=== PATIENT | female | born 1995 | race African-American/Black ===

== ENCOUNTER 2017-06-19 22:14 | Emergency (ER) | payer OTHER ==
[~2017-06-19] VITALS: Ht 154.9 cm; Wt 57.2 kg
[~2017-06-19 22:14] MED LIST: ACET-704 PO; AMOX500C PO; AMOX500T PO; CIPR500T94 PO; CLIN150C14 PO; HYDR-971 PO; NITR100C62 PO; ONDA4TAB10 PO; ONDA4TAB10 SL; PROAIR HFA8.5 GM IH
[2017-06-19 22:29] VITALS: BP 116/69
[2017-06-19] MEDS ORDERED: PENI500T PO (22:41)
[2017-06-19] MEDS ORDERED: HYDR-971 PO (22:41)
--- NOTE | 2017-06-19 22:41 | PHYS DOC ---
Past Medical History Past Medical History: Asthma, Kidney Stone Additional Past Medical Histor: kidney stones Past Surgical History: No Surgical History Alcohol Use: None Drug Use: None Adult General Chief Complaint Chief Complaint: DENTAL PROBLEM HPI HPI Patient is a 22 year old female who presents with dental pain. She reports left upper dental injury about 5 months ago, hasn't been seen by a dentist, now for 3 days with severe pain. She denies fevers/chills, nausea/vomiting, abscess. She has been taking penicillin intermittently which was left over from a dental infection her mother had in hte past, also taking tylenol. Doesn' t have a dentist. Review of Systems Review of Systems Constitutional: Denies fever or chills HENT: Denies nasal congestion or sore throat. Reports dental pain. Respiratory: Denies cough or shortness of breath Cardiovascular: Denies chest pain GI: Denies abdominal pain, nausea, vomiting Musculoskeletal: Denies back pain or joint pain Integument: Denies rash Neurologic: Denies headache Allergies Allergies Allergies Coded Allergies Type Severity Reaction Last Updated Verified tramadol Adverse Reaction Intermediate vomiting 08/04/15 Yes Uncoded Allergies Type Severity Reaction Last Updated Verified " SOUR SKITTLES" Allergy Intermediate rash 07/05/14 Physical Exam Physical Exam Constitutional: Well developed, well nourished, no acute distress, non-toxic appearance. HENT: Normocephalic, atraumatic, bilateral external ears normal, oropharynx moist, nose normal. left maxillary premolar with about 1/4 tooth absent, generalized tenderness to tooth & gingiva with minimal gingival erythema, no abscess, no trismus, no jaw swelling. Eyes: PERRLA, EOMI, conjunctiva normal, no discharge. Neck: supple, no stridor. Cardiovascular: RRR, no murmurs, no edema. Lungs & Thorax: LCTAB, no wheezing, no respiratory distress. Abdomen: soft, nontender, nondistended. Skin: Warm, dry, no erythema, no rash. Back: No tenderness. Extremities: No tenderness, no edema. Neurologic: Alert and oriented X 3, no focal deficits noted. Psychologic: Affect normal, judgement normal, mood normal. Current Patient Data Vital Signs Vital Signs Date Time Temp Pulse Resp B/P (MAP) Pulse Ox O2 Delivery O2 Flow Rate FiO2 06/19/17 22:29 98.0 63 16 99 Room Air 98.0 EKG EKG [] Radiology/Procedures Radiology/Procedures [] Course & Med Decision Making Course & Med Decision Making Pertinent Labs and Imaging studies reviewed. (See chart for details) The patient presents with dental pain. She is driving tonight. Gave prescriptions for penicillin (recommend using this rather than her mother's pills), norco. Rest, hydration, ibuprofen q8 hours for pain, norco for severe breakthrough pain, no drinking alcohol or driving while taking norco. Follow up with a dentist as soon as possible. Come back for difficulty breathing or swallowing, or otherwise worsening condition. Discharged home in stable condition. [] Dragon Disclaimer Dragon Disclaimer This electronic medical record was generated, in whole or in part, using a voice recognition dictation system. Departure Departure Impression: Primary Impression: Pain, dental Disposition: HOME, SELF-CARE Condition: STABLE Referrals: NO PCP (PCP) LAURE JAMES DMD Patient Instructions: Dental Pain, [id number] Additional Instructions: You were seen in the emergency department today for dental pain. Please take penicillin as prescribed, take ibuprofen 600 mg (3 tablets) every 8 hours for pain and inflammation, use [place] for severe breakthrough pain. No drinking alcohol or driving while taking [place]. Apply ice packs to your face. Make an appointment with a dentist as soon as possible. You can see Dr. James or the dentist of your choice. Come back for difficulty breathing or swallowing, or otherwise worsening condition. Scripts Hydrocodone/Apap 5-325 (NORCO 5-325 TABLET) 1 Each Tablet 1 TAB PO PRN Q6HRS Y for PAIN, #10 TAB 0 Refills Prov: LUKE PARRY MD 06/19/17 Penicillin V Potassium (PENICILLIN V POTASSIUM) 500 Mg Tablet 500 MG PO QID for 7 Days, TAB 0 Refills Prov: LUKE PARRY MD 06/19/17 LUKE PARRY MD Jun 19, 2017 22:41
== END 2017-06-19 23:09 | disposition home or self-care (01) ==
LOC: ER 22:14
DX: K08.89 Other specified disorders of teeth and supporting structures (principal); J45.909 Unspecified asthma, uncomplicated; Z87.442 Personal history of urinary calculi; Z88.6 Allergy status to analgesic agent
CPT/HCPCS: 99283

== ENCOUNTER 2017-07-19 21:11 | Emergency (ER) | payer SELFPAY ==
[~2017-07-19] VITALS: Ht 152.4 cm; Wt 57.2 kg
[~2017-07-19 21:11] MED LIST changes: +PENI500T PO
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
[2017-07-19] MEDS ORDERED: predniSONE 20 MG TABLET PO ONE (21:45)
[2017-07-19] MEDS ORDERED: IPRATRPIUM/ALBUTEROL 0.5/2.5MG 3 ML NEBU. NEB ONE (21:45)
[2017-07-19] MEDS ORDERED: cefTRIAXone IM 1 GM VIAL IM ONE (22:30)
[2017-07-19] MEDS ORDERED: AZITHROMYCIN 250 MG TABLET. PO ONE (22:30)
[2017-07-19] MEDS ORDERED: AZIT250T6 PO (23:03)
[2017-07-19] MEDS ORDERED: PROVENTIL HFA6.7 GM IH (23:03)
[2017-07-19] MEDS ORDERED: PRED-220 PO (23:04)
[2017-07-19 23:36] VITALS: BP 106/50
--- NOTE | 2017-07-20 07:28 | RAD ---
Exam performed: 2 views of the chest. Indication: asthma, cough, shortness of breath Date of Service:07/19/2017 11:28 PM . Comparison : Two-view chest from 11/01/14 Findings: PA and lateral radiographs of the chest reveal a normal cardiomediastinal contour. Probable left perihilar infiltrates. No pleural effusion or pneumothorax is seen. The visualized osseous structures are unremarkable. Impression: Probable left perihilar infiltrates
== END 2017-07-19 23:36 | disposition home or self-care (01) ==
LOC: ER 21:11
DX: J45.901 Unspecified asthma with (acute) exacerbation (principal); Z88.5 Allergy status to narcotic agent; Z91.02 Food additives allergy status; Z87.891 Personal history of nicotine dependence; Z79.899 Other long term (current) drug therapy
CPT/HCPCS: 71020; 94250; 94640; 96372; 99284; J0696; J7512; J7620; Q0144

== ENCOUNTER 2017-08-29 22:51 | Emergency (ER) | payer SELFPAY ==
[~2017-08-29] VITALS: Ht 152.4 cm; Wt 57.2 kg
[~2017-08-29 22:51] MED LIST changes: +AZIT250T6 PO; +PRED-220 PO; +PROVENTIL HFA6.7 GM IH
[2017-08-29 22:57] VITALS: BP 123/73
[2017-08-29] MEDS ORDERED: NAPR500T PO (23:10)
[2017-08-29] MEDS ORDERED: PENI500T PO (23:10)
--- NOTE | 2017-08-29 23:10 | PHYS DOC ---
Past Medical History Past Medical History: Asthma, Kidney Stone Additional Past Medical Histor: kidney stones Past Surgical History: No Surgical History Alcohol Use: None Drug Use: None Adult General Chief Complaint Chief Complaint: DENTAL PROBLEM HPI HPI Patient is a 22 year old female presents to the emergency department with complaints of dental pain. Patient states she has had chronic dental pain. She reports no fever. She has no difficulty with swallowing or phonation. Review of Systems Review of Systems Constitutional: Denies fever or chills [] Eyes: Denies change in visual acuity, redness, or eye pain [] HENT: Denies nasal congestion or sore throat; complaints of dental pain [] Respiratory: Denies cough or shortness of breath [] Cardiovascular: No additional information not addressed in HPI [] GI: Denies abdominal pain, nausea, vomiting, bloody stools or diarrhea [] : Denies dysuria or hematuria [] Musculoskeletal: Denies back pain or joint pain [] Integument: Denies rash or skin lesions [] Neurologic: Denies headache, focal weakness or sensory changes [] Endocrine: Denies polyuria or polydipsia [] Allergies Allergies Allergies Coded Allergies Type Severity Reaction Last Updated Verified tramadol Adverse Reaction Intermediate vomiting 08/04/15 Yes Uncoded Allergies Type Severity Reaction Last Updated Verified " SOUR SKITTLES" Allergy Intermediate rash 07/05/14 Physical Exam Physical Exam Constitutional: Well developed, well nourished, no acute distress, non-toxic appearance. [] HENT: Normocephalic, atraumatic, bilateral external ears normal, oropharynx moist, teeth #4 and 14 with caries. No surrounding gingival erythema. No oral exudates, nose normal. [] Eyes: PERRLA, EOMI, conjunctiva normal, no discharge. [] Neck: Normal range of motion, no tenderness, supple without lymphadenopathy, no stridor. [] Cardiovascular:Heart rate regular rhythm, no murmur [] Lungs & Thorax: Bilateral breath sounds clear to auscultation [] Abdomen: Bowel sounds normal, soft, no tenderness, no masses, no pulsatile masses. [] Skin: Warm, dry, no erythema, no rash. [] Extremities: No tenderness, no cyanosis, no clubbing, ROM intact, no edema. [] Neurologic: Alert and oriented X 3, normal motor function, normal sensory function, no focal deficits noted. [] Current Patient Data Vital Signs Vital Signs Date Time Temp Pulse Resp B/P (MAP) Pulse Ox O2 Delivery O2 Flow Rate FiO2 08/29/17 22:57 98.0 67 20 100 Room Air 98.0 EKG EKG [] Radiology/Procedures Radiology/Procedures [] Course & Med Decision Making Course & Med Decision Making Pertinent Labs and Imaging studies reviewed. (See chart for details) [] Dragon Disclaimer Dragon Disclaimer This electronic medical record was generated, in whole or in part, using a voice recognition dictation system. Departure Departure Impression: Primary Impression: Pain, dental Disposition: HOME, SELF-CARE Condition: STABLE Referrals: NO PCP (PCP) Patient Instructions: Dental Caries Additional Instructions: You been provided with a list for dental resources. Please select an office and call to schedule an appointment. Scripts Penicillin V Potassium (PENICILLIN V POTASSIUM) 500 Mg Tablet 1 TAB PO QID, #40 TAB Prov: FAVIAN PARK APRN 08/29/17 Naproxen (NAPROSYN) 500 Mg Tablet 500 MG PO BID Y for PAIN, #20 TAB Prov: FAVIAN PARK APRN 08/29/17 FAVIAN PARK APRN Aug 29, 2017 23:10
[2017-08-29] MEDS ORDERED: NAPROXEN 500 MG TABLET PO ONE (23:15)
== END 2017-08-29 23:15 | disposition home or self-care (01) ==
LOC: ER 22:51
DX: G89.29 Other chronic pain (principal); K08.89 Other specified disorders of teeth and supporting structures; J45.909 Unspecified asthma, uncomplicated; Z88.6 Allergy status to analgesic agent; Z91.018 Allergy to other foods
CPT/HCPCS: 99283

== ENCOUNTER 2017-09-13 18:31 | Emergency (ER) | payer SELFPAY ==
[~2017-09-13 18:31] MED LIST changes: +NAPR500T PO
== END 2017-09-13 18:33 | disposition left against medical advice (07) ==
LOC: ER 18:31
DX: M54.5 Low back pain (principal); Z88.5 Allergy status to narcotic agent; Z53.21 Procedure and treatment not carried out due to patient leaving prior to being seen by health care provider; V43.52XA Car driver injured in collision with other type car in traffic accident, initial encounter; Y93.I9 Activity, other involving external motion; Y92.410 Unspecified street and highway as the place of occurrence of the external cause; Y99.8 Other external cause status

== ENCOUNTER 2018-01-02 15:18 | Emergency (ER) | payer SELFPAY ==
[2018-01-02 15:56] LABS: URINE HCG POC HCG NEGATIVE (Negative)
[2018-01-02 16:30] LABS: BILIRUBIN,URINE NEGATIVE (NEG); CLARITY,URINE CLEAR; COLOR,URINE YELLOW; GLUCOSE,URINE NEGATIVE (NEG); NITRITE,URINE NEGATIVE (NEG); PROTEIN,URINE NEGATIVE (NEG-TRACE); UROBILINOGEN,URINE 0.2 mg/dL (0.2 mg/dL)
[2018-01-02 16:33] LABS: BARBITURATES NEG (NEG); BENZODIAZEPINES NEG (NEG); CANNABINOIDS POS (NEG); COCAINE NEG (NEG); METHADONE NEG (NEG); OPIATES NEG (NEG); PHENCYCLIDINE NEG (NEG)
[2018-01-02 16:34] LABS: AMPHETAMINE/METHAMPHETAMINE NEG (NEG); ETHANOL, URINE NEG (NEG)
[2018-01-02 16:39] LABS: BACTERIA,URINE FEW /HPF (0-FEW); RBC,URINE OCC /HPF (0-2)
[2018-01-02 16:40] LABS: SQUAMOUS EPITHELIAL CELL,UR MOD /LPF
[2018-01-02 16:46] LABS: BASO % 0 % (0-3); EOS % 0 % (0-3); HEMATOCRIT 43.1 % (36.0-47.0); LYMPH # 1.1 x10^3/uL (1.0-4.8); LYMPH % 6 % (24-48); MEAN CORPUSCULAR HEMOGLOBIN 31 pg (25-35); MEAN CORPUSCULAR HGB CONC 35 g/dL (31-37); MEAN CORPUSCULAR VOLUME 88 fL (79-100); MONO # 0.8 x10^3/uL (0.0-1.1); MONO % 4 % (0-9); NEUT # 17.3 x10^3uL (1.8-7.7); NEUT % 90 % (31-73); PLATELET COUNT 169 x10^3/uL (140-400); RED BLOOD COUNT 4.91 x10^6/uL (3.50-5.40); WHITE BLOOD COUNT 19.2 x10^3/uL (4.0-11.0)
[2018-01-02 16:49] LABS: ADD MAN DIFF? YES
[2018-01-02] MEDS: fentaNYL PF VIAL 100 MCG/2 ML VIAL IV ×2 (17:02)
[2018-01-02] MEDS: ONDANSETRON PF 4 MG/2 ML VIAL. IV ×2 (17:03)
[2018-01-02 17:12] LABS: % BANDS 8 % (0-9); % LYMPHS 7 % (24-48); % MONOS 2 % (0-10); % SEGS 83 % (35-66)
[2018-01-02 17:13] LABS: PLT ESTIMATE ADEQUATE (ADEQUATE); TOXIC GRANULATION SLIGHT
[2018-01-02 17:45] LABS: BLOOD UREA NITROGEN 8 mg/dL (7-20); BUN/CREATININE RATIO 13 (6-20); CALCIUM 8.6 mg/dL (8.5-10.1); CREATININE 0.6 mg/dL (0.6-1.0); GLUCOSE 115 mg/dL (70-99)
[2018-01-02] MEDS ORDERED: CONTRAST GIVEN MC ×2 (17:45)
[2018-01-02 17:46] LABS: ANION GAP 8 (6-14); CARBON DIOXIDE 29 mmol/L (21-32); CHLORIDE 104 mmol/L (98-107); GFR 152.7; SODIUM 141 mmol/L (136-145)
[2018-01-02 17:52] LABS: ALBUMIN 3.8 g/dL (3.4-5.0); ALBUMIN/GLOBULIN RATIO 1.1 (1.0-1.7); ALK PHOS 55 U/L (46-116); ALT (SGPT) 33 U/L (14-59); AST (SGOT) 33 U/L (15-37); TOTAL BILIRUBIN 0.4 mg/dL (0.2-1.0); TOTAL PROTEIN 7.4 g/dL (6.4-8.2)
[2018-01-02] MEDS: IOHEXOL 300 MG/ML 100ML VIAL. IV ×2 (17:55)
[2018-01-03 19:14] LABS: CHLAMYDIA PROBE Negative (Negative); GC PROBE Negative (Negative)
== END 2018-01-02 19:29 | disposition home or self-care (01) ==
LOC: ER 15:18
DX: N93.8 Other specified abnormal uterine and vaginal bleeding (principal); K52.9 Noninfective gastroenteritis and colitis, unspecified; N76.0 Acute vaginitis; B96.89 Other specified bacterial agents as the cause of diseases classified elsewhere; J45.909 Unspecified asthma, uncomplicated; Z87.442 Personal history of urinary calculi; Z88.5 Allergy status to narcotic agent; Z91.018 Allergy to other foods
CPT/HCPCS: 36415; 74177; 76856; 80053; 80307; 81001; 81025; 85007; 85025; 87491; 87591; 96374; 96375; 99285-25; J2405; J3010; Q0111; Q9967

== ENCOUNTER 2019-10-01 09:30 | Emergency (ER) | payer SELFPAY ==
[~2019-10-01] VITALS: Ht 157.5 cm; Wt 61.7 kg
[~2019-10-01 09:30] MED LIST changes: +ALBU2.5V8 IH; +HYDR-3164 PO; -HYDR-971 PO; +METR250T PO; +NAPR-683 PO; -NAPR500T PO; -PROAIR HFA8.5 GM IH; +PROM25TA10 PO
[2019-10-01 09:37] VITALS: BP 119/80
--- NOTE | 2019-10-01 10:04 | PHYS DOC ---
Past Medical History Past Medical History: Asthma, Kidney Stone Additional Past Medical Histor: kidney stones Past Surgical History: No Surgical History Alcohol Use: None Drug Use: None Adult General Chief Complaint Chief Complaint: DENTAL PROBLEM HPI HPI Patient is a 24 year old female that presents to the ER for dental pain has been ongoing for 3 days. The patient has been to the ER multiple times in the past with dental pain. She states that she has a dentist and and is able to go to the dentist but she has not yet called to make an appointment. Denies any other complaints. Review of Systems Review of Systems Constitutional: Denies fever or chills [] Eyes: Denies change in visual acuity, redness, or eye pain [] HENT: Reports dental pain. Respiratory: Denies cough or shortness of breath [] Cardiovascular: No additional information not addressed in HPI [] GI: Denies abdominal pain, nausea, vomiting, bloody stools or diarrhea [] : Denies dysuria or hematuria [] Musculoskeletal: Denies back pain or joint pain [] Integument: Denies rash or skin lesions [] Neurologic: Denies headache, focal weakness or sensory changes [] Endocrine: Denies polyuria or polydipsia [] Complete systems were reviewed and found to be within normal limits, except as documented in this note. Allergies Allergies Allergies Coded Allergies Type Severity Reaction Last Updated Verified tramadol Adverse Reaction Intermediate vomiting 08/04/15 Yes Uncoded Allergies Type Severity Reaction Last Updated Verified " SOUR SKITTLES" Allergy Intermediate rash 07/05/14 Physical Exam Physical Exam Constitutional: Well developed, well nourished, no acute distress, non-toxic appearance. [] HENT: Normocephalic, atraumatic, bilateral external ears normal, oropharynx moist, no oral exudates, nose normal. Tooth # 18 has a cavity, Tooth #31 has cavity. Eyes: PERRLA, EOMI, conjunctiva normal, no discharge. [] Neck: Normal range of motion, no tenderness, supple, no stridor. [] Skin: Warm, dry, no erythema, no rash. [] Back: No tenderness, no CVA tenderness. [] Extremities: No tenderness, no cyanosis, no clubbing, ROM intact, no edema. [] Neurologic: Alert and oriented X 3, normal motor function, normal sensory function, no focal deficits noted. [] Psychologic: Affect normal, judgement normal, mood normal. [] Current Patient Data Vital Signs Vital Signs Date Time Temp Pulse Resp B/P (MAP) Pulse Ox O2 Delivery O2 Flow Rate FiO2 10/01/19 09:37 98.2 77 18 119/80 (93) 100 Room Air 98.2 EKG EKG [] Radiology/Procedures Radiology/Procedures [] Course & Med Decision Making Course & Med Decision Making Pertinent Labs and Imaging studies reviewed. (See chart for details) Patient has dental cavities. Discussed and reports sensation when she eats and drinks. Discussed how she needs to go to a dentist. A medical screening exam was performed on this patient and the patient does not appear to be having a medical emergency. Her symptoms are not of sufficient severity and within reasonable medical probability it is unlikely the absence of immediate medical attention would result in placing the health of the individual (or, with respect to a woman, the health of the woman or her unborn child) in serious jeopardy, serious impairment to bodily functions, or serious dysfunction of any bodily organ or part. If , the patient is not in labor Dragon Disclaimer Dragon Disclaimer This electronic medical record was generated, in whole or in part, using a voice recognition dictation system. Departure Departure Impression: Primary Impression: Pain, dental Additional Impression: Encounter for medical screening examination Disposition: 01 HOME, SELF-CARE Condition: STABLE Referrals: NO PCP (PCP) Patient Instructions: Dental Caries, Dental Pain, Medical Screening Exam Additional Instructions: Thank you for visiting [facility]. We appreciate you trusting us with your care. If any additional problems come up don't hesitate to return to visit us. Please follow up with your primary care provider so they can plan additional care if needed and know about the problem that you had. If symptoms worsen come back to the Emergency Department. Any concerning symptoms that start such as chest pain, shortness of air, weakness or numbness on one side of the body, running high fevers or any other concerning symptoms return to the ER. Problem Qualifiers ELVIS SIMON APRN Oct 01, 2019 10:04
== END 2019-10-01 10:17 | disposition home or self-care (01) ==
LOC: ER 09:30
DX: K08.89 Other specified disorders of teeth and supporting structures (principal); K02.9 Dental caries, unspecified; J45.909 Unspecified asthma, uncomplicated; Z91.018 Allergy to other foods
CPT/HCPCS: 99281

== ENCOUNTER 2020-06-21 00:39 | Emergency (ER) | payer MEDICAID ==
[~2020-06-21] VITALS: Ht 154.9 cm; Wt 61.8 kg
--- NOTE | 2020-06-21 01:18 | PHYS DOC ---
Past Medical History Past Medical History: Asthma, Kidney Stone Additional Past Medical Histor: kidney stones Past Surgical History: No Surgical History Smoking Status: Current Some Day Smoker Alcohol Use: None Drug Use: None General Adult EDM: Chief Complaint: Toothache HPI: HPI: 25-year-old female presents emerged department complaints of toothache x2 days. Patient states she is tried [id number] medications without improvement. Patient states she has a hole in the tooth on the bottom molar. She states no fevers. She is , she states is only mild to take Tylenol. She denies any fever, nausea, vomiting, chest pain, shortness of breath, abdominal pain. She states she does feel movement without concern. Nothing makes her pain worse, nothing makes her pain better. Review of Systems: Review of Systems: Constitutional: Denies fever or chills, toothache [] Respiratory: Denies cough or shortness of breath. [] Cardiovascular: Denies chest pain or edema. [] GI: Denies abdominal pain, nausea, vomiting, bloody stools or diarrhea. [] Musculoskeletal: Denies back pain or joint pain. [] Neurologic: Denies headache, focal weakness or sensory changes. [] Heart Score: Risk Factors: Risk Factors: DM, Current or recent (<one month) smoker, HTN, HLP, family history of CAD, obesity. Risk Scores: Score 0 - 3: 2.5% MACE over next 6 weeks - Discharge Home Score 4 - 6: 20.3% MACE over next 6 weeks - Admit for Clinical Observation Score 7 - 10: 72.7% MACE over next 6 weeks - Early Invasive Strategies Allergies: Allergies: Allergies Coded Allergies Type Severity Reaction Last Updated Verified tramadol Adverse Reaction Intermediate vomiting 08/04/15 Yes Uncoded Allergies Type Severity Reaction Last Updated Verified " SOUR SKITTLES" Allergy Intermediate rash 07/05/14 Physical Exam: PE: Constitutional: Well developed, well nourished, no acute distress, non-toxic appearance. [] HENT: Normocephalic, atraumatic, bilateral external ears normal, oropharynx moist, no oral exudates, nose normal. Left bottom molar with hole in the tooth, no swelling appreciated on exam[] Eyes: PERRLA, EOMI, conjunctiva normal, no discharge. [] Neck: Normal range of motion, no tenderness, supple, no stridor. [] Cardiovascular:Heart rate regular rhythm, no murmur [] Lungs & Thorax: Bilateral breath sounds clear to auscultation [] Skin: Warm, dry, no erythema, no rash. [] Extremities: No tenderness, no edema. [] Neurologic: Alert and oriented X 3, no focal deficits noted. [] Psychologic: Affect normal, judgement normal, mood normal. [] EKG: EKG: [] Radiology/Procedures: Radiology/Procedures: [] Course & Med Decision Making: Course & Med Decision Making Pertinent Labs and Imaging studies reviewed. (See chart for details) []25-year-old female presents emerged department complaints of toothache x2 days. Patient states she is tried [id number] medications without improvement. Patient states she has a hole in the tooth on the bottom molar. She states no fevers. She is , she states is only mild to take Tylenol. She denies any fever, nausea, vomiting, chest pain, shortness of breath, abdominal pain. She states she does feel movement without concern. Nothing makes her pain worse, nothing makes her pain better. Bupivacaine 0.5%, lidocaine 1% mixture used for inferior alveolar block. Amoxicillin 500 mg p.o. twice daily times a total of 7 days provided. We will also plan for viscous lidocaine, use with cotton balls to help with localized anesthesia. Discussed return precautions. Discussed recommendations for follow-up with dentist as an outpatient. Patient expressed understanding of discharge plans. Mona Disclaimer: Mona Disclaimer: This electronic medical record was generated, in whole or in part, using a voice recognition dictation system. Departure Departure Impression: Primary Impression: Pain, dental Disposition: HOME, SELF-CARE Condition: IMPROVED Referrals: NO PCP (PCP) Patient Instructions: Dental Pain, [id number] Scripts Amoxicillin (AMOXICILLIN) 500 Mg Capsule 1 CAP PO Q8HRS for infection for 7 Days, #21 CAP Prov: EDGARDO JULIO MD 06/21/20 Justicifation of Admission Dx: Justifications for Admission: Justification of Admission Dx: N/A EDGARDO JULIO MD Jun 21, 2020 01:18
[2020-06-21 01:19] VITALS: BP 136/72
[2020-06-21] MEDS ORDERED: AMOX500C PO (01:31)
[2020-06-21] MEDS ORDERED: BUPIVACAINE MPF 0.5% 30 ML VIAL. INJ ONE (02:00)
[2020-06-21] MEDS ORDERED: LIDOCAINE 2% VISCOUS 15 ML SOLUTION. SWSW ONE (02:00)
== END 2020-06-21 01:48 | disposition home or self-care (01) ==
LOC: ER 00:39
DX: O26.891 Other specified pregnancy related conditions, first trimester (principal); K08.89 Other specified disorders of teeth and supporting structures; J45.909 Unspecified asthma, uncomplicated; F17.200 Nicotine dependence, unspecified, uncomplicated; Z87.442 Personal history of urinary calculi; Z88.8 Allergy status to other drugs, medicaments and biological substances; Z3A.00 Weeks of gestation of pregnancy not specified
CPT/HCPCS: 64400; 99284; J3490

== ENCOUNTER 2020-07-19 13:55 | Emergency (ER) | payer MEDICAID ==
[~2020-07-19] VITALS: Ht 154.9 cm; Wt 71.0 kg
[2020-07-19 14:00] VITALS: BP 133/71
[2020-07-19] MEDS ORDERED: AMOX500C PO (14:19)
[2020-07-19] MEDS ORDERED: CHLO15MO2 PO (14:19)
--- NOTE | 2020-07-19 14:20 | PHYS DOC ---
Past Medical History Past Medical History: Asthma, Kidney Stone Additional Past Medical Histor: kidney stones Past Surgical History: No Surgical History Smoking Status: Never Smoker Alcohol Use: None Drug Use: None General Adult EDM: Chief Complaint: DENTAL PROBLEM HPI: HPI: Patient is a 25 year old female who presents with left lower dental pain x 2 days. States she can not get the tooth pulled due to being 34 weeks . No facial swelling, no fever. Patient has a left lower molar that is broken along with several other dental caries. Patient only other history is kidney stones. Review of Systems: Review of Systems: Constitutional: Denies fever or chills. [] Eyes: Denies change in visual acuity. [] HENT: Denies nasal congestion or sore throat. Left lower dental pain. [] Respiratory: Denies cough or shortness of breath. [] Cardiovascular: Denies chest pain or edema. [] GI: Denies abdominal pain, nausea, vomiting, bloody stools or diarrhea. [] : Denies dysuria. [] Musculoskeletal: Denies back pain or joint pain. [] Integument: Denies rash. [] Neurologic: Denies headache, focal weakness or sensory changes. [] Endocrine: Denies polyuria or polydipsia. [] Lymphatic: Denies swollen glands. [] Psychiatric: Denies depression or anxiety. [] Heart Score: Risk Factors: Risk Factors: DM, Current or recent (<one month) smoker, HTN, HLP, family history of CAD, obesity. Risk Scores: Score 0 - 3: 2.5% MACE over next 6 weeks - Discharge Home Score 4 - 6: 20.3% MACE over next 6 weeks - Admit for Clinical Observation Score 7 - 10: 72.7% MACE over next 6 weeks - Early Invasive Strategies Allergies: Allergies: Allergies Coded Allergies Type Severity Reaction Last Updated Verified tramadol Adverse Reaction Intermediate vomiting 08/04/15 Yes Uncoded Allergies Type Severity Reaction Last Updated Verified " SOUR SKITTLES" Allergy Intermediate rash 07/05/14 Physical Exam: PE: Constitutional: Well developed, well nourished, no acute distress, non-toxic appearance. [] HENT: Normocephalic, atraumatic, bilateral external ears normal, oropharynx moist, no oral exudates, nose normal. Left lower dental caries and broken teeth. [] Eyes: PERRLA, EOMI, conjunctiva normal, no discharge. [] Neck: Normal range of motion, no tenderness, supple, no stridor. [] Cardiovascular:Heart rate regular rhythm, no murmur [] Lungs & Thorax: Bilateral breath sounds clear to auscultation [] Abdomen: Bowel sounds normal, soft, no tenderness, no masses, no pulsatile masses. [] Skin: Warm, dry, no erythema, no rash. [] Back: No tenderness, no CVA tenderness. [] Extremities: No tenderness, no cyanosis, no clubbing, ROM intact, no edema. [] Neurologic: Alert and oriented X 3, normal motor function, normal sensory function, no focal deficits noted. [] Psychologic: Affect normal, judgement normal, mood normal. [] EKG: EKG: [] Radiology/Procedures: Radiology/Procedures: [] Course & Med Decision Making: Course & Med Decision Making Pertinent Labs and Imaging studies reviewed. (See chart for details) See HPI. 2% Lidocaine is injected into the medial side of the ramus of the mandible at the inferior alveolar nerve. I will also send the patient home on Amoxicillin and Magic Mouth Wash. [] Dragon Disclaimer: Dragon Disclaimer: This electronic medical record was generated, in whole or in part, using a voice recognition dictation system. Departure Departure Impression: Primary Impression: Pain, dental Disposition: HOME, SELF-CARE Condition: STABLE Referrals: NO PCP (PCP) Patient Instructions: Dental Caries Additional Instructions: Follow up with a dentist as soon as possible. Use medications as prescribed. Scripts Hydrocodone/Apap 5-325 (NORCO 5-325 TABLET) 1 Each Tablet 1 TAB PO PRN Q8HRS PRN for PAIN, #10 TAB 0 Refills Prov: JUAN A BURTON APRN 07/19/20 Amoxicillin (AMOXICILLIN) 500 Mg Capsule 1 CAP PO BID, #20 CAP Prov: JUAN A BURTON APRN 07/19/20 Chlorhexidine Gluconate (PERIDEX) 15 Ml Mouthwash 15 ML PO BID for 14 Days, #420 ML 0 Refills Prov: JUAN A BURTON APRN 07/19/20 Justicifation of Admission Dx: Justifications for Admission: Justification of Admission Dx: N/A JUAN A BURTON APRN Jul 19, 2020 14:20
[2020-07-19] MEDS ORDERED: LIDOCAINE 2% 20 ML VIAL. IJ ONE (14:30)
[2020-07-19] MEDS ORDERED: HYDR-3164 PO (14:46)
[2020-07-20] MEDS ORDERED: AMOX1TAB61 PO (07:42)
[2020-07-20] MEDS ORDERED: ONDA4TAB7 PO (07:42)
== END 2020-07-19 14:50 | disposition home or self-care (01) ==
LOC: ER 14:04
DX: O99.613 Diseases of the digestive system complicating pregnancy, third trimester (principal); K08.89 Other specified disorders of teeth and supporting structures; O99.513 Diseases of the respiratory system complicating pregnancy, third trimester; J45.909 Unspecified asthma, uncomplicated; Z3A.32 32 weeks gestation of pregnancy; Z88.6 Allergy status to analgesic agent; Z91.018 Allergy to other foods
CPT/HCPCS: 64400; 96372; 99283; 99284

== ENCOUNTER 2020-07-20 06:41 | Emergency (ER) | payer MEDICAID ==
[~2020-07-20] VITALS: Ht 154.9 cm; Wt 75.0 kg
[~2020-07-20 06:41] MED LIST changes: +CHLO15MO2 PO
--- NOTE | 2020-07-20 07:20 | PHYS DOC ---
Past Medical History Past Medical History: Asthma, Kidney Stone Additional Past Medical Histor: kidney stones Past Surgical History: No Surgical History Smoking Status: Never Smoker Alcohol Use: None Drug Use: None General Adult EDM: Chief Complaint: DENTAL PROBLEM HPI: HPI: 25 yo F, 8 months , presents to the ed with c/o worsening left lower dental pain and cheek swelling, that started after pt was seen in ed yesterday. Patient was seen in the ED yesterday for periapical abscess and was prescribed amoxicillin, norco, magic mouth wash and had an inferior aveolar nerve block with 2% lidocaine. Pt also reports nausea and nbnb vomiting after taking her hydrocodone. Refuses any further dental block. Review of Systems: Review of Systems: Constitutional: Denies fever or chills. [] Eyes: Denies change in visual acuity. [] HENT: Denies nasal congestion or sore throat, or neck stiffness Respiratory: Denies cough or shortness of breath. [] Cardiovascular: Denies chest pain or edema. [] GI: Denies abdominal pain, n/v : Denies dysuria. [] Musculoskeletal: Denies back pain or joint pain. [] Integument: Denies rash. [] Neurologic: Denies headache, focal weakness or sensory changes. [] Endocrine: Denies polyuria or polydipsia. [] Psychiatric: Denies depression or anxiety. [] Allergies: Allergies: Allergies Coded Allergies Type Severity Reaction Last Updated Verified tramadol Adverse Reaction Intermediate vomiting 08/04/15 Yes Uncoded Allergies Type Severity Reaction Last Updated Verified " SOUR SKITTLES" Allergy Intermediate rash 07/05/14 Physical Exam: PE: Constitutional: Well developed, well nourished, in pain HENT: Normocephalic, atraumatic, bilateral external ears normal, oropharynx moist/patent, no oral exudates, nose normal, very poor dentition diffusely with left molar gingival swelling, mild swelling to left cheek w/no erythema, no drooling or muffled speech Eyes: EOMI, conjunctiva normal, no discharge. [] Neck: Normal range of motion, no tenderness, supple, no stridor. [] Cardiovascular:Heart rate regular rhythm, no murmur [] Lungs & Thorax: speaking full sentences, bilateral equal chest rise, no tripod position Abdomen: Bowel sounds normal, soft, no tenderness, no masses, no pulsatile masses. [] Skin: Warm, dry, no erythema, no rash. [] Back: No tenderness, no CVA tenderness. [] Extremities: No tenderness, no cyanosis, no clubbing, ROM intact, no edema. [] Neurologic: Alert and oriented X 3, normal motor function, normal sensory function, no focal deficits noted. [] Psychologic: Affect normal, judgement normal, mood normal. [] EKG: EKG: [] Radiology/Procedures: Radiology/Procedures: [] Course & Med Decision Making: Course & Med Decision Making Pertinent Labs and Imaging studies reviewed. (See chart for details) Concern for worsening left-sided dental pain with nausea and vomiting after taking hydrocodone. She was treated with dexamethasone and Zofran in the ED. ABX changed to Augmentin. Strongly encouraged the patient follow-up in the dental clinic today and complete her antibiotics. Analgesia with Tylenol and ibuprofen. Strict ED return precautions given for worsening facial swelling, difficulties breathing, drooling or speech changes. Encouraged urgent outpatien t follow-up with PMD and dental clinic-referral information given. Life- threatening processes were considered but are low suspicion at this time, given history and physical exam. Pt was educated on all prescription medications and adverse effects. All patient's questions were answered and pt was stable at time of discharge. Differential includes meningitis, encephalitis, intracranial hemorrhage, obstructive hydrocephaly, CVA, carbon oxide poisoning, cerebral or cavernous venous thrombosis, hypertensive emergency, preeclampsia, giant cell arteritis, glaucoma, carotid or vertebral artery dissection, superior vena cava syndrome, infection, space-occupying lesions I spoken with the patient and her caregivers. I explained the patient's condition, diagnoses and treatment plan based on the information available to me at this time. I have answered the patient and her caregiver's questions and addressed any concerns. The patient and her caregivers have a good understanding of patient's diagnosis, condition and treatment plan as can be expected at this point. Vital signs have been stable. Patient's condition is stable and appropriate for discharge from the emergency department. Patient will pursue further outpatient evaluation with primary care physician or other designated or consulting physician as outlined in the discharge instructions. The patient and/or caregivers are agreeable to this plan of care and follow-up instructions have been explained in detail. The patient and/or caregivers have received these instructions in written form and have expressed an understanding of the discharge instructions. The patient and/or caregivers are aware that any significant change of condition or worsening of symptoms should prompt immediate return to this or the closest emergency department or call to 911. Mona Disclaimer: Mona Disclaimer: This electronic medical record was generated, in whole or in part, using a voice recognition dictation system. Departure Departure Impression: Primary Impression: Periapical abscess Additional Impression: Nausea and vomiting Disposition: HOME, SELF-CARE Condition: STABLE Referrals: NO PCP (PCP) Patient Instructions: Dental Abscess, Dental Caries Additional Instructions: dental Address: [address] [place] [id number] Hours: Closed ? Opens 7:30AM Mon Dental clinic referral list given Scripts Amoxicillin/Potassium Clav (AUGMENTIN 875-125 TABLET) 1 Each Tablet 1 TAB PO Q12HR, #20 TAB Prov: DAIJA PICKENS DO 07/20/20 Ondansetron Hcl (ZOFRAN) 4 Mg Tablet 1 TAB PO PRN Q6-8HRS for nausea, #20 TAB Prov: DAIJA PICKENS DO 07/20/20 Justicifation of Admission Dx: Justifications for Admission: Justification of Admission Dx: N/A DAIJA PICKENS DO Jul 20, 2020 07:20
[2020-07-20] MEDS ORDERED: AMOX1TAB61 PO (07:42)
[2020-07-20] MEDS ORDERED: ONDA4TAB7 PO (07:42)
[2020-07-20 07:44] VITALS: BP 133/87
[2020-07-20] MEDS ORDERED: ONDANSETRON ODT 4 MG TAB.RAPDIS. PO ONE (07:45)
[2020-07-20] MEDS ORDERED: DEXAMETHASONE 4 MG TABLET PO SCH (08:00)
== END 2020-07-20 08:20 | disposition home or self-care (01) ==
LOC: ER 06:41
DX: O21.9 Vomiting of pregnancy, unspecified (principal); K04.7 Periapical abscess without sinus; R60.0 Localized edema; J45.909 Unspecified asthma, uncomplicated; Z87.442 Personal history of urinary calculi; Z3A.08 8 weeks gestation of pregnancy
CPT/HCPCS: 99283

== ENCOUNTER 2021-10-12 13:24 | Emergency (ER) | payer MEDICAID ==
[~2021-10-12] VITALS: Ht 162.6 cm; Wt 65.0 kg
[~2021-10-12 13:24] MED LIST changes: +AMOX1TAB61 PO; -CLIN150C14 PO; +CLIN150C16 PO; +ONDA4TAB7 PO
[2021-10-12 13:35] VITALS: BP 150/70
[2021-10-12 13:47] LABS: BILIRUBIN,URINE NEGATIVE (NEG); CLARITY,URINE CLOUDY; COLOR,URINE YELLOW; NITRITE,URINE NEGATIVE (NEG); PH,URINE 6.5 (<5.0-8.0); PROTEIN,URINE NEGATIVE (NEG-TRACE); UROBILINOGEN,URINE 0.2 mg/dL (0.2 mg/dL)
--- NOTE | 2021-10-12 13:55 | PHYS DOC ---
Past Medical History Past Medical History: Sickle Cell Disease Additional Past Medical Histor: kidney stones Past Surgical History: No Surgical History Smoking Status: Never Smoker Alcohol Use: None Drug Use: None General Adult EDM: Chief Complaint: FLANK PAIN HPI: HPI: Patient is a 26-year-old female presents to the emergency department concerning pain to her lower back and sides for the past week. 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 Patient denies back pain or discomfort while at rest, reports pain when she bends her back to the left right or when she bends down. Patient reports her pain is up to a 5 or 6 out of 10. Patient denies traumatic injury to her back. Patient denies a sudden onset of back pain, reports she felt her back was sore after work and continued on while she worked over the past week. Patient does report that she is for home test last week when her back pain started. 2 para 1, patient reports she is a high risk related to sickle cell disease. Patient states this is not a pain exacerbation similar to her sickle cell pains. Patient does not feel as if she is having a sickle cell attack. Patient reports her last menstrual cycle on September 06 with normal duration and flow. Denies vaginal discharge, denies vaginal bleeding, denies lesions or rashes to her vaginal area, denies STI concerns. Patient denies abdominal pains, denies pelvic pain or pelvic cramping. Patient denies nausea, vomiting, diarrhea or constipation. Patient denies chest pains or shortness of breath. Patient denies recent fever or chills. Patient reports she only takes Tylenol for pain, last dose was yesterday to regular strength Tylenols with moderate relief in pain. Patient denies other physical complaints or physical concerns. Patient denies a cigarette smoking history, denies drinking alcohol or use of illicit street drugs denies IV drug abuse, denies loss of bowel or bladder control, denies urinary retention, denies burning with urination, denies increased urinary frequency, denies pain or pressure with urination. Denies numbness or tingling to her buttocks or genital area. Denies numbness or tingling down her extremities. Denies a history of immunosuppression, cancers, recent fever or chills. Review of Systems: Review of Systems: 14 body systems of review of systems have been reviewed. See HPI for pertinent positives and negative responses, otherwise all other systems are negative, nonpertinent or noncontributory. Constitutional: Negative except as outlined in HPI above. Skin: Negative except as outlined in HPI above. Eyes: Negative except as outlined in HPI above. HENT: Negative except as outlined in HPI above. Respiratory: Negative except as outlined in HPI above. Cardiovascular: Negative except as outlined in HPI above. GI: Negative except as outlined in HPI above. : Negative except as outlined in HPI above. Musculoskeletal: Negative except as outlined in HPI above. Integument: Negative except as outlined in HPI above. Neurologic: Negative except as outlined in HPI above. Endocrine: Negative except as outlined in HPI above. Lymphatic: Negative except as outlined in HPI above. Psychiatric: Negative except as outlined in HPI above. Heart Score: C/O Chest Pain: No Risk Factors: Risk Factors: DM, Current or recent (<one month) smoker, HTN, HLP, family history of CAD, obesity. Risk Scores: Score 0 - 3: 2.5% MACE over next 6 weeks - Discharge Home Score 4 - 6: 20.3% MACE over next 6 weeks - Admit for Clinical Observation Score 7 - 10: 72.7% MACE over next 6 weeks - Early Invasive Strategies Allergies: Allergies: Allergies Coded Allergies Type Severity Reaction Last Updated Verified tramadol Adverse Reaction Intermediate vomiting 08/04/15 Yes Uncoded Allergies Type Severity Reaction Last Updated Verified " SOUR SKITTLES" Allergy Intermediate rash 07/05/14 Physical Exam: PE: Constitutional: Well developed, well nourished, no acute distress, non-toxic appearance. 26-year-old female in no apparent distress. HENT: Normocephalic, atraumatic. Eyes: Conjunctiva normal, no discharge. Neck: Normal range of motion, no stridor. Cardiovascular: No cyanosis appreciated, distal cap refill less than 2 seconds. Regular rate and rhythm. Lungs & Thorax: Patient is in no respiratory distress, no audible adventitious lung sounds appreciated. Normal work of breathing, lung sounds clear to auscultate all lung pablo. No adventitious lung sounds appreciated for auscultation. Abdomen: Nontender, no abnormalities noted. Normal bowel sounds all 4 quadrants, nontender with palpation, no skin discoloration, no surgical scars, no masses appreciated. Skin: Warm, dry, no erythema, no rash. Back: No deformities appreciated, no midline spinal tenderness to palpation. No left-sided or right-sided CVA TTP. Intact 5/5 motor strength with hip flexion knee flexion and extension, knee abduction, no pain with plantar or dorsiflexion at the ankle, no pain or discomfort with dorsiflexion of the toes bilaterally. Pain elicited with palpation on left and right sided lumbar area. No pain elicited with palpation along flanks. Pain elicited with active range of motion of spine at lumbar area. No deformities, no edema, no ecchymosis or contusions appreciated. Extremities: No tenderness, no cyanosis, no clubbing, ROM intact, no edema. 2+ dorsalis pedis/posterior tibial pulses. Distal cap refill less than 2 seconds. Neurologic: Alert and oriented X 3, normal motor function, normal sensory function, no focal deficits noted. Psychologic: Affect normal, judgement normal, mood normal. EKG: EKG: [] Radiology/Procedures: Radiology/Procedures: [] Course & Med Decision Making: Course & Med Decision Making Pertinent Labs and Imaging studies reviewed. (See chart for details) 26-year-old female, vital signs reviewed, presents emergency department concerning lumbar pain and bilateral flank pain. Patient does have concerned she strained her back while at work 1 week ago when pain started. This is not a thunderclap onset. Physical examination consistent with thoracolumbar musculoskeletal back pain. No saddle anesthesia appreciated, low likelihood of spinal infectious process. The patient is , G2, P1, 5 weeks 1 day with EDC June 12 have 2021 per reported last menstrual cycle. Patient has not established [facility] care. Denies abdominal pain, denies pelvic cramping, denies vaginal discharge and vaginal bleeding. Denies urinary infection signs and symptoms. Low likelihood of sickle cell crisis exacerbation. This is unlikely an ectopic . Low likelihood of obstructive nephrolithiasis, denies thunderclap onset. While physical examination is consistent with thoracolumbar musculoskeletal strain, will order urinalysis assay, urine test to rule out infectious process. Patient's urine is infected, no hematuria, positive pyuria, positive for trichomonas. Ordered urine GC chlamydia testing. With patient's physical presentation and urine result, will treat for STIs, pyelonephritis, 500 mg Rocephin IM, 1 g azithromycin p.o., 2 g Flagyl p.o., will prescribe Keflex 4 times a day 500 mg for the next 10 days. Will prescribe vitamin. Patient reports she has not drink alcohol. Denies alcohol history. Discussed findings with patient, discussed antibiotic treatment planning, starting vitamin, side effects of medications, discussed with patient urine pending for GC and chlamydia however we will treat prophylactically, discussed with patient having sexual partners treated, discussed with patient being retested for trichomonas and STIs in 3 months after completing treatment. Discussed with patient refraining from drinking alcohol for at least 24 hours after today's antibiotic regimen and throughout her antibiotic regimen for pyelonephritis. May use Tylenol for pains. Strict follow-up with [facility] soon for reevaluation. Patient gave verbal understanding of and is amenable to ED planning and discharge planning. Discussed with the patient all findings and diagnostic testing as well as the need to follow-up with their primary care provider for further evaluation and treatment or return to the ED if any new or worsening symptoms. Strict return precautions were also discussed at length, the patient voiced understanding and agreement with the discharge planning. The patient was nontoxic in appearance, in no apparent distress, and hemodynamically stable at the time of disposition. [employer] Disclaimer: Eatwave Disclaimer: This electronic medical record was generated, in whole or in part, using a voice recognition dictation system. Departure Departure Impression: Primary Impression: Low back pain Qualified Codes: M54.50 - Low back pain, unspecified Additional Impressions: Kidney infection Trichomonas infection STI (sexually transmitted infection) Qualified Codes: Z3A.01 - Less than 8 weeks gestation of Disposition: HOME / SELF CARE / HOMELESS Condition: GOOD Referrals: NO PCP (PCP) FRANCOIS SOUSA Jr, MD Patient Instructions: ABCs of , Back Pain in , Pyelonephritis, Adult, Sexually Transmitted Diseases (STD) In , Trichomoniasis Additional Instructions: You were seen today in the fridge department for low back pain and side pains. A urinalysis and test was done today. You are per your urine test. For your reported last menstrual cycle you were approximately 5 weeks 1 day . Your urine showed concerning signs for a kidney infection, also had a trichomonas infection. Your urine was sent to the lab for gonorrhea chlamydia testing, these tests are pending at this time. Because of your trichomonas infection and status, you were treated for gonorrhea and chlamydia in the ER today. You were also given medication for trichomonas, please do not drink alcohol for the next 10 days while you are on your antibiotic regimen for your kidney infection. Please have your sexual partner treated for trichomonas and check for STIs. Refrain from sexual intercourse while on your antibiotic regimen. Please take all prescribed medications as directed until complete. Because you are , please have your urine and STIs rechecked in 3 months, this is a must. I am also starting you on a vitamin, take as directed unless otherwise directed by your [facility] [employer] specialist. You may use Tylenol for pain. Please follow-up with your [facility] soon. You had noted that you do not have an [facility] specialist, I have given information for Dr. Sousa who is an [facility] specialist, you may consider seeing this physician or any [facility] specialist of your choice. Return to the emergency department for worsening symptoms or other concerns. Thank you for visiting our Emergency Department. It was a pleasure taking care of you today in the emergency department and we appreciate you trusting us with your care. If any additional problems come up don't hesitate to return to visit us. Please follow up with your primary care provider so they can plan additional care if needed and know about the problem that you had. If symptoms worsen come back to the Emergency Department. Any concerning symptoms that start such as chest pain, shortness of air, weakness or numbness on one side of the body, running high fevers or any other concerning symptoms return to the ER. Thank you for visiting our Emergency Department. It was a pleasure taking care of you today in the emergency department and we appreciate you trusting us with your care. If any additional problems come up don't hesitate to return to visit us. Please follow up with your primary care provider so they can plan additional care if needed and know about the problem that you had. If symptoms worsen come back to the Emergency Department. Any concerning symptoms that start such as chest pain, shortness of air, weakness or numbness on one side of the body, running high fevers or any other concerning symptoms return to the ER. EMERGENCY DEPARTMENT GENERAL DISCHARGE INSTRUCTIONS Thank you for coming to [facility] Emergency Department (ED) today and trusting us with you care. We trust that you had a positive experience in our Emergency Department. If you wish to speak to the department management, you may call the Director at [phone]. YOUR FOLLOW UP INSTRUCTIONS ARE FOLLOWS: 1. Do you have a private Doctor? If you do not have a private doctor, please ask for a resource list of physicians or clinics that may be able to assist you with follow up care. 2. The Emergency Physicain has interpreted your x-rays. The X-Ray specialist will also review them. If there is a change in the findings, you will be notified in 48 hours when at all possible. 3. A lab test or culture has been done, your results will be reviewed and you will be notified if you need a change in treatment. ADDITIONAL INSTRUCTIONS AND INFORMATION: 1. Your care today has been supervised by a physician who is specially trained in emergency care. Many problems require more than one evaluation for a complete diagnosis and treatment. We recommend that you schedule your follow up appointment as recommended to ensure complete treatment of you illness or injury. If you are unable to obtain follow up care and continue to have a problem, or if your condition worsens, we recommend that you return to the ED. 2. We are not able to safely determine your condition over the phone nor are we able to give sound medical advice over the phone. For these safety reasons, if you call for medical advice we will ask you to come to the ED for further evaluation. 3. If you have any questions regarding these discharge instructions please call the ED at [phone]. SAFETY INFORMATION: In the interest of safety, wellness, and injury prevention; we encourage you to wear your sealbelt, if you smoke; quite smoking, and we encourage family to use a protective helmet for bicycling and other sporting events that present an increased risk for head injury. IF YOUR SYMPTOMS WORSEN OR NEW SYMPTOMS DEVELOP, OR YOU HAVE CONCERNS ABOUT YOUR CONDITION; OR IF YOUR CONDITION WORSENS WHILE YOU ARE WAITING FOR YOUR FOLLOW UP APPOINTMENT; EITHER CONTACT YOUR PRIMARY CARE DOCTOR, THE PHYSICIAN WHOSE NAME AND NUMBER YOU WERE GIVEN, OR RETURN TO THE ED IMMEDIATELY. Scripts [facility] Cmb#95/Ferrous Fumarate/Fa ( TABLET) 1 Each Tablet 1 TAB PO DAILY for 30 Days, #30 TAB 0 Refills Prov: ELVIS VENCES APRN 10/12/21 Cephalexin (CEPHALEXIN) 500 Mg Tablet 1 TAB PO QID for Kidney infection for 10 Days, #40 TAB 0 Refills Prov: ELVIS VENCES APRN 10/12/21 ELVIS VENCES APRN Oct 12, 2021 13:55
[2021-10-12 14:15] LABS: BACTERIA,URINE FEW /HPF (0-FEW); RBC,URINE 0 /HPF (0-2); TRICHOMONAS,URINE PRESENT; WBC,URINE >40 /HPF (0-4)
[2021-10-12 14:25] LABS: U PREG PATIENT POSITIVE (NEG)
[2021-10-12] MEDS ORDERED: CEPH500T PO (15:01)
[2021-10-12] MEDS ORDERED: PNV1TABL25 PO (15:01)
[2021-10-12] MEDS ORDERED: metroNIDAZOLE 500 MG TABLET PO ONE (15:15)
[2021-10-12] MEDS ORDERED: cefTRIAXone IM 500 MG VIAL. IM ONE (15:15)
[2021-10-12] MEDS ORDERED: AZITHROMYCIN 250 MG TABLET. PO ONE (15:15)
== END 2021-10-12 15:20 | disposition home or self-care (01) ==
LOC: ER 13:24
DX: O26.891 Other specified pregnancy related conditions, first trimester (principal); A59.9 Trichomoniasis, unspecified; O98.311 Other infections with a predominantly sexual mode of transmission complicating pregnancy, first trimester; O23.01 Infections of kidney in pregnancy, first trimester; M54.50 Low back pain, unspecified; Z3A.01 Less than 8 weeks gestation of pregnancy; Z88.6 Allergy status to analgesic agent; Z88.8 Allergy status to other drugs, medicaments and biological substances
CPT/HCPCS: 81001; 81025; 87086; 87491; 87591; 96372; 99283; J0696